=== PATIENT | male | born 1950 | race Caucasian/White ===

== ENCOUNTER 2018-10-04 02:47 | Inpatient (IN) | payer MEDICARE ==
[~2018-10-04] VITALS: Ht 165.1 cm; Wt 79.8 kg
[2018-10-04] VITALS (9 sets, daily range): BP systolic 118–158; BP diastolic 58–88
[2018-10-04] MEDS ORDERED: METRONIDAZOLE 500 MG PREMIX 100 ML IV ONE (03:15)
[2018-10-04] MEDS ORDERED: ONDANSETRON HCL 4MG/2ML INJ IV STA (03:15)
[2018-10-04] MEDS ORDERED: CEFTRIAXONE 1 G PREMIX 50 ML IV ONE (03:15)
[2018-10-04] MEDS ORDERED: LEVOFLOXACIN 750MG PREMIX 150 ML IV ONE (03:15)
[2018-10-04] MEDS ORDERED: SODIUM CHLORIDE 0.9% 1,000 ML IV ONE (03:15)
[2018-10-04 03:56] LABS: HEMATOCRIT. 42.6 % (42.0-52.0); HEMOGLOBIN. 14.8 g/dL (14.0-18.0); MEAN CORPUSCULAR HEMOGLOBIN 30.4 pg (28.0-32.0); MEAN CORPUSCULAR VOLUME 87.6 fL (80.0-94.0); MEAN PLATELET VOLUME 8.9 fl (7.4-10.4); PLATELET 180 x1000/uL (130-400); RED BLOOD CELL COUNT 4.86 mill/uL (4.7-6.1); RED CELL DISTRIBUTION WIDTH 13.1 % (11.6-14.6)
[2018-10-04 04:06] LABS: PROTHROMBIN TIME 10.2 sec (9.6-11.0)
[2018-10-04 04:10] LABS: CHLORIDE 107 mEq/L (98-107)
[2018-10-04 04:31] LABS: CLARITY URINE CLEAR (CLEAR); COLOR URINE YELLOW (YELLOW); KETONES URINE NEGATIVE (NEGATIVE); LEUKOCYTE ESTERASE URINE 1+ (NEGATIVE); NITRITE URINE NEGATIVE (NEGATIVE); OCCULT BLOOD URINE 1+ (NEGATIVE); PROTEIN URINE 1+ (NEGATIVE); SPECIFIC GRAVITY URINE 1.014 (1.005-1.030); UROBILINOGEN URINE 0.2 E.U./dL (0.2-1.0)
[2018-10-04 05:25] LABS: PLATELET ESTIMATE NORMAL
[2018-10-04] MEDS ORDERED: SODIUM CHLORIDE 0.9% 1000ML BAG (SEPSIS BOLUS) IV ONE (05:30)
[2018-10-04] MEDS ORDERED: CLONIDINE 0.1MG TABLET PO PRN (10:45)
[2018-10-04] MEDS ORDERED: GUAIFENESIN 200MG/10ML SUGAR FREE UDC PO PRN (10:45)
[2018-10-04] MEDS ORDERED: NA PHOS,M-B/NA PHOS,DI-BA ENEMA 118ML PR PRN (10:45)
[2018-10-04] MEDS ORDERED: DIPHENHYDRAMINE 50MG/ML VIAL IV PRN (10:45)
[2018-10-04] MEDS ORDERED: ACETAMINOPHEN 650MG SUPP PR PRN (10:45)
[2018-10-04] MEDS ORDERED: DOCUSATE SODIUM 100MG CAPSULE PO PRN (10:45)
[2018-10-04] MEDS ORDERED: ONDANSETRON HCL 4MG/2ML INJ IV PRN (10:45)
[2018-10-04] MEDS ORDERED: IPRATROPIUM/ALBUTEROL 0.5-3(2.5)MG/3ML NEB INH PRN (10:45)
[2018-10-04] MEDS ORDERED: MAGNESIUM/ALUMINUM HYDROXIDE/SIMETHICONE 30ML UDC PO PRN (10:45)
[2018-10-04] MEDS ORDERED: HYDROCODONE/ACETAMINOPHEN 5/325MG TABLET PO PRN (10:45)
[2018-10-04] MEDS ORDERED: LORAZEPAM 0.5MG TABLET PO PRN (10:45)
[2018-10-04] MEDS: SODIUM CHLORIDE 0.45% 1,000 ML IV SCH (11:13)
[2018-10-04] MEDS: ENOXAPARIN 40MG/0.4ML SYR SUBCUT SCH (11:40)
[2018-10-04] MEDS ORDERED: POTASSIUM CHLORIDE INJ 40 MEQ in DEXT 5% WATER 250 ML IV NR (12:00)
[2018-10-04] MEDS: METRONIDAZOLE 500 MG PREMIX 100 ML IV SCH ×2 (13:07→21:51)
[2018-10-04 15:08] LABS: *AMPHETAMINES SCREEN URINE NEGATIVE (NEGATIVE); *BARBITURATES SCREEN URINE NEGATIVE (NEGATIVE); *BENZODIAZEPINES SCREEN URINE NEGATIVE (NEGATIVE)
[2018-10-04 15:09] LABS: *COCAINE SCREEN URINE NEGATIVE (NEGATIVE); CANNABINOID URINE SCREEN NEGATIVE (NEGATIVE); METHADONE URINE SCREEN NEGATIVE (NEGATIVE); OPIATES URINE SCREEN NEGATIVE (NEGATIVE); PHENCYCLIDINE URINE SCREEN NEGATIVE (NEGATIVE)
[2018-10-04] MEDS ORDERED: AMLO-375 MT (15:41)
[2018-10-04] MEDS: ACETAMINOPHEN 325MG TABLET PO PRN (17:27)
[2018-10-04] MEDS: AMLODIPINE 5MG TABLET PO SCH (17:32)
[2018-10-04] MEDS ORDERED: GENTAMICIN SULFATE 140 MG in SODIUM CHLORIDE 0.9% 96.5 ML IV SCH (22:00)
[2018-10-05] VITALS (11 sets, daily range): BP systolic 113–138; BP diastolic 61–80
[2018-10-05] MEDS: LEVOFLOXACIN 250MG PREMIX 50 ML IV SCH (00:02)
[2018-10-05] MEDS: METRONIDAZOLE 500 MG PREMIX 100 ML IV SCH ×3 (04:24→21:52)
[2018-10-05] MEDS: SODIUM CHLORIDE 0.45% 1,000 ML IV SCH ×2 (04:25→11:34)
[2018-10-05 05:53] LABS: BASOPHILS % 0.5 % (0.0-2.0); EOSINOPHILS % 0.2 % (0.0-5.0); HEMATOCRIT. 37.5 % (42.0-52.0); HEMOGLOBIN. 13.3 g/dL (14.0-18.0); LYMPHOCYTES % 11.9 % (20.0-50.0); MEAN CORPUSCULAR HEMOGLOBIN 30.9 pg (28.0-32.0); MEAN CORPUSCULAR VOLUME 87.3 fL (80.0-94.0); MEAN PLATELET VOLUME 9.1 fl (7.4-10.4); MONOCYTES % 8.6 % (2.0-8.0); NEUTROPHILS % 78.8 % (40.0-76.0); PLATELET 139 x1000/uL (130-400); RED BLOOD CELL COUNT 4.29 mill/uL (4.7-6.1); RED CELL DISTRIBUTION WIDTH 12.9 % (11.6-14.6)
[2018-10-05 05:56] LABS: CHLORIDE 108 mEq/L (98-107)
[2018-10-05 06:08] LABS: LDL CHOLESTEROL 70 mg/dL (5-100); T4 FREE 0.95 ng/dL (0.76-1.46)
[2018-10-05 06:09] LABS: HDL CHOLESTEROL 41 mg/dL (40-59)
[2018-10-05] MEDS: AMLODIPINE 5MG TABLET PO SCH (08:52)
[2018-10-05] MEDS: ENOXAPARIN 40MG/0.4ML SYR SUBCUT SCH (11:36)
[2018-10-05] MEDS: ACETAMINOPHEN 325MG TABLET PO PRN (14:58)
[2018-10-05] MEDS: TAMSULOSIN HCL 0.4MG SR CAPSULE PO SCH (14:59)
[2018-10-05] MEDS: GENTAMICIN SULFATE 160 MG in SODIUM CHLORIDE 0.9% 100 ML IV SCH (17:32)
[2018-10-06] VITALS: BP 113/74
[2018-10-06] MEDS: LEVOFLOXACIN 250MG PREMIX 50 ML IV SCH (00:12)
[2018-10-06] MEDS: SODIUM CHLORIDE 0.45% 1,000 ML IV SCH ×2 (02:23→16:20)
[2018-10-06] MEDS: METRONIDAZOLE 500 MG PREMIX 100 ML IV SCH ×3 (03:47→12:55)
[2018-10-06 04:00] VITALS: BP 126/72
[2018-10-06 07:17] LABS: HEMATOCRIT 39.1 % (42.0-52.0); HEMOGLOBIN 13.4 g/dL (14.0-18.0); MEAN CORPUSCULAR HEMOGLOBIN 30.3 pg (28.0-32.0); MEAN CORPUSCULAR VOLUME 88.5 fL (80.0-94.0); PLATELET 176 x1000/uL (130-400); RED BLOOD CELL COUNT 4.42 mill/uL (4.7-6.1); RED CELL DISTRIBUTION WIDTH 13.4 % (11.6-14.6)
[2018-10-06 08:00] VITALS: BP 127/84
[2018-10-06] MEDS ORDERED: FINASTERIDE 5MG TABLET PO SCH (09:00)
[2018-10-06] MEDS: AMLODIPINE 5MG TABLET PO SCH (09:59)
[2018-10-06] MEDS: TAMSULOSIN HCL 0.4MG SR CAPSULE PO SCH (10:00)
[2018-10-06] MEDS: ENOXAPARIN 40MG/0.4ML SYR SUBCUT SCH ×2 (11:30→12:13)
[2018-10-06 12:00] VITALS: BP 116/69
[2018-10-06] MEDS: GENTAMICIN SULFATE 160 MG in SODIUM CHLORIDE 0.9% 100 ML IV SCH (12:20)
[2018-10-06 16:00] VITALS: BP 124/82
[2018-10-06 16:35] VITALS: BP 116/69
[2018-10-06] MEDS ORDERED: AMOXICILLIN/POTASSIUM CLAVULANATE 875/125MG TAB PO SCH (21:00)
== END 2018-10-06 17:57 | disposition home or self-care (01) | DRG 872 ==
LOC: ER 02:47 → 5EST 05:31 → EDBEDREQ 05:38 → EDBEDREQTM 05:38 → ENRESERV 07:04 → CANRESERV 07:04 → EDBEDREQ 07:58 → 8WST 10-05 20:28
PROVIDERS: ADMIT Internal Medicine; ATTEND Internal Medicine
DX: A41.51 Sepsis due to Escherichia coli [E. coli] (principal); E87.2 Acidosis; N39.0 Urinary tract infection, site not specified; E87.6 Hypokalemia; N18.9 Chronic kidney disease, unspecified; I12.9 Hypertensive chronic kidney disease with stage 1 through stage 4 chronic kidney disease, or unspecified chronic kidney disease; N41.9 Inflammatory disease of prostate, unspecified; N40.0 Benign prostatic hyperplasia without lower urinary tract symptoms; R73.9 Hyperglycemia, unspecified; E80.6 Other disorders of bilirubin metabolism; B96.89 Other specified bacterial agents as the cause of diseases classified elsewhere; K52.9 Noninfective gastroenteritis and colitis, unspecified
CPT/HCPCS: 36415; 71045; 74176; 76872; 80048; 80061; 80305; 83036; 83605; 84145; 84153; 84439; 84443; 84484; 85027; 87077; 87186; 93005; 93306; 93970; 96361; 96365; 96366; 96368; 96375; 97162; 99291; J0696; J1580; J1650; J1956; J2405; J3480; J3490; J7030; J7050; J7060; G0103

== ENCOUNTER 2021-03-27 16:11 | Emergency (ER) | payer MEDICARE ==
[~2021-03-27] VITALS: Ht 165.1 cm; Wt 89.0 kg
[2021-03-27 16:42] VITALS: BP 122/77
== END 2021-03-27 18:50 | disposition left against medical advice (07) ==
LOC: ER 16:11
DX: Z53.21 Procedure and treatment not carried out due to patient leaving prior to being seen by health care provider (principal)